=== PATIENT | female | born 1965 | race Caucasian/White ===

== ENCOUNTER → 2022-11-05 | Outpatient (CLI) | payer MEDICAID, SELFPAY ==
--- NOTE | 2022-11-05 13:09 | RAD_ITS ---
HISTORY: LUMBAR PAIN. TECHNIQUE: XR Spine Lumbar Min 4 Views. COMPARISON: None. FINDINGS: VERTEBRAE: Vertebral body heights preserved. Mild degenerative changes of the posterior elements. ALIGNMENT: No significant anterior or posterior subluxation. INTERVERTEBRAL DISCS: Degenerative endplate changes with small osteophytes at multiple levels and mild intervertebral disc space narrowing of L3-4, L4-5, and L5-S1. SOFT TISSUES: Multiple left renal shadow calcifications measuring up to 2 cm. Partially imaged 5.9 cm calcified mass in the pelvis. RAD/L/S Spine Min 4 Views IMPRESSION: No acute fracture or dislocation identified in the lumbar spine. Mild multilevel degenerative change. Left nephrolithiasis. Calcified pelvic mass, likely calcified uterine leiomyoma. Consider ultrasound correlation. Electronically Signed: Alta Zuluaga MD at 9:28 EDT ,
--- NOTE | 2022-11-05 13:15 | RAD_ITS ---
HISTORY: CERVICAL PAIN. TECHNIQUE: XR Spine Cervical 4 or 5 Views. COMPARISON: None. FINDINGS: VERTEBRAE: Vertebral body heights maintained. No acute fracture identified. ALIGNMENT: 2 mm retrolisthesis of C5-6. INTERVERTEBRAL DISCS: Intervertebral disc space narrowing with endplate change and osteophytes of C5-6. Moderate bilateral foraminal narrowing at C5-6. SOFT TISSUES: No significant prevertebral soft tissue swelling. RAD/Cerv Spine 4 or 5 Views IMPRESSION: Moderate spondylosis of C5-6 with mild retrolisthesis and foraminal narrowing. Electronically Signed: Alta Zuluaga MD at 14:17 EDT ,
== END | disposition home or self-care (01) ==
LOC: RAD 13:06
PROVIDERS: Referring Provider Chiropractor Orthopedic; Visit Provider Chiropractor Orthopedic
DX: M99.01 Segmental and somatic dysfunction of cervical region (principal); M99.03 Segmental and somatic dysfunction of lumbar region
CPT/HCPCS: 72050; 72110